=== PATIENT | male | born 1935 | race Caucasian/White ===

== ENCOUNTER 2019-05-01 20:23 | Emergency (ER) | payer MEDICARE ==
[~2019-05-01] VITALS: Ht 182.9 cm; Wt 86.2 kg
[2019-05-01 20:29] VITALS: Ht 182.9 cm; Wt 86.2 kg
[2019-05-01] MEDS ORDERED: SYNTHROID100 MCG PO (20:30)
[2019-05-01] MEDS ORDERED: CRESTOR20 MG PO (20:31)
[2019-05-01] MEDS ORDERED: TENORMIN25 MG PO (20:31)
[2019-05-01] MEDS ORDERED: SINGULAIR10 MG PO (20:31)
[2019-05-01] MEDS ORDERED: BAYER CHEWABLE81 MG PO (20:35)
[2019-05-01 20:49] LABS: BASOPHILS 0.1 % (0-2); EOSINOPHILS 0.2 % (0-7); HEMATOCRIT 42.3 % (42.0-54.0); HEMOGLOBIN 14.2 g/dL (13.5-17.5); IMMATURE GRANULOCYTES 0.4 % (0-5); LYMPHOCYTES 5.4 % (15-50); MCH 29.7 pg (26.0-34.0); MCHC 33.6 g/dL (31.0-37.0); MCV 88.5 fL (80.0-100.0); MEAN PLATELET VOLUME 10.3 fL (7.4-10.4); MONOCYTES 7.6 % (2-11); NEUTROPHILS 86.3 % (40-80); PLATELET COUNT 181 10x3/uL (130-400); RBC 4.78 10x6/uL (4.20-6.10); RDW 14.4 % (11.5-14.5)
[2019-05-01 21:04] LABS: ALBUMIN 4.4 g/dL (3.4-5.0); ALKALINE PHOSPHATASE 80 U/L (46-116); ALT (SGPT) 29 U/L (10-68); CALC OSMOLALITY 284 mosm/kg (275-300); CALCIUM 8.8 mg/dL (8.5-10.1); CARBON DIOXIDE 26.5 mmol/L (21.0-32.0); CHLORIDE - SERUM 102 mmol/L (98-107); CREATININE - SERUM 1.1 mg/dL (0.6-1.3); GLUCOSE 149 mg/dL (74-106); POTASSIUM - SERUM 4.2 mmol/L (3.5-5.1); PROTEIN - SERUM 8.4 g/dL (6.4-8.2); SODIUM 140 mmol/L (136-145); UREA NITROGEN 22 mg/dL (7-18); eGFR NON AFRICAN AMERICAN 68 mL/min (90-120)
[2019-05-01 21:08] LABS: AMYLASE - SERUM 55 U/L (25-115); LIPASE 160 U/L (73-393)
[2019-05-01 21:12] LABS: TROPONIN-I < 0.017 ng/mL (0.000-0.060)
[2019-05-01 22:30] LABS: APPEARANCE CLEAR (CLEAR); BILIRUBIN NEGATIVE (NEGATIVE); COLOR YELLOW (YELLOW); GLUCOSE NEGATIVE (NEGATIVE); KETONE NEGATIVE (NEGATIVE); NITRITE NEGATIVE (NEGATIVE); PROTEIN TRACE mg/dL (NEGATIVE); UROBILINOGEN NORMAL (NORMAL)
[2019-05-01 22:32] LABS: BACTERIA FEW /hpf (NEGATIVE); RED CELLS - URINE 0-5 /hpf (0-5); WHITE CELLS - URINE 0-5 /hpf (NEGATIVE)
[2019-05-02 01:35] VITALS: BP 142/75
== END 2019-05-02 01:35 | disposition home or self-care (01) ==
LOC: D.ER 20:23
PROVIDERS: Family Medicine
DX: K59.00 Constipation, unspecified (principal)